=== PATIENT | female | born 1935 | race Two or more races ===

== ENCOUNTER 2018-08-26 12:23 | Day surgery (SDC) | payer OTHER ==
[2018-08-26] MEDS ORDERED: ATROPINE SULFATE 1 MG/10 ML SYR IVP ONE (12:31)
[2018-08-26] MEDS ORDERED: NS 500 ML IV ONE (12:31)
[2018-08-26] MEDS ORDERED: MIDAZOLAM 2 MG/2 ML VIAL IVP ONE (12:31)
[2018-08-26] MEDS ORDERED: fentaNYL 100 MCG/2 ML INJ IVP ONE (12:31)
--- NOTE | 2018-08-26 13:16 | PDHPUP ---
History & Physical Update H&P update statement: This history and physical update is based on an assessment of the patient which was completed after admission or registration (within 24 hours), but prior to the surgery/procedure. H&P update: H&P reviewed & patient examined, no change in patient's condition since H&P completed
[2018-08-26] MEDS ORDERED: ALBUTEROL 3 ML DEYVIAL IH PRN (13:22)
[2018-08-26] MEDS ORDERED: ONDANSETRON 4 MG/2 ML VIAL IVP PRN (13:22)
[2018-08-26] MEDS ORDERED: NALOXONE HCL 0.4 MG/ML INJ IVP PRN (13:22)
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
[2018-08-26] MEDS ORDERED: PROPOFOL 200 MG/20 ML VIAL ONE ×2 (13:25→13:27)
[2018-08-26] MEDS ORDERED: LIDOCAINE 2% 100 MG/5 ML SYR ONE (13:25)
[2018-08-26] MEDS ORDERED: ATROPINE SULFATE 1 MG/10 ML SYR ONE (13:28)
[2018-08-26 13:36] LABS: INR 4.68 (0.83-1.16); PROTIME(PATIENT) 43.5 SEC (12.0-15.0)
[2018-08-26] MEDS ORDERED: MAGNESIUM SULF 1 GM/DEXTROSE 100 ML IV ONE (14:00)
--- NOTE | 2018-08-26 14:19 | PDTEE1 ---
ERICH Cardioversion Procedure Procedure: electrical cardioversion Indications: atrial fibrillation Consent: signed and in chart Anticoagulation: warfarin Procedural Details: Pads were placed in anterior-posterior position. ERICH probe was advanced and standard images obtained. There is no evidence of left atrial or left atrial appendage thrombus. Synchronized cardioversion attempt #1: 200J Conclusions: successful ERICH cardioversion Patient Problems: Problems Problem Status Onset CAD (coronary artery disease) Acute Fusion of lumbar spine Acute
--- NOTE | 2018-08-26 14:29 | POSTANESTH ---
Post Anesthetic Evaluation Cardiovascular Status: Similar to Pre-Op Cond Respiratory Status: Similar to Pre-op Cond. Level of Consciousness/Mental Status: Mildly Sleepy, Arousable Pain Control: Adequate, Prn Tx Ordered Nausea/Vomiting Control: Adequate, Prn Tx Ordered Complications Possibly Related to Anesthesia: None Noted
--- NOTE | 2018-08-27 06:14 | CPEKG ---
Test Reason : OPEN Blood Pressure : / mmHG Vent. Rate : 075 BPM Atrial Rate : 194 BPM P-R Int : 053 ms QRS Dur : 131 ms QT Int : 448 ms P-R-T Axes : 000 -79 095 degrees QTc Int : 501 ms Afib/flut and V-paced complexes Confirmed by Ubaldo Wallace ([id number]) on 08/27/2018 6:14:03 AM Referred By: Confirmed By:Ubaldo Wallace
--- NOTE | 2018-08-28 13:06 | ECHO ---
[email or web address] [phone] Main: [phone] Fax: Transesophageal Echocardiography Name: JOANNA LORENZANA MR#: [id number] Study Date: 08/26/2018 Study Time: 02:04 PM Date of : 1935 Age: 82 year(s) Height: ( ) Weight: ( ) BSA: Gender: Female Examination: ERICH Indication: cardioversion Image Quality: Contrast: Requested by: Heart Rate: Rhythm: BP: / Procedure Staff Corporate Analyst: Melissa Seymour RDCS Reading Physician: Hilton Lanza MD Requesting Provider: ERICH Exam Details Conclusions: Normal size left ventricle. Normal global systolic LV function. The left atrial appendage is unilobular. Good color flow doppler in the left atrial appendage. No thrombus in left appendage. Cardioversion perfomred immediately following the procedure. Measurements: Chambers Valvular Assessment AV/MV Valvular Assessment TV/PV Normal Normal Normal Name Value Range Name Value Range Name Value Range Additional Measurements: Findings: Left Ventricle: Normal size left ventricle. Normal global systolic LV function. Right Ventricle: Normal size right ventricle. Normal RV function. Left Atrial Appendage: The left atrial appendage is unilobular. Good color flow doppler in the left atrial appendage. No thrombus in left appendage. Mitral Valve: Patient: JOANNA LORENZANA Study Date: 08/26/2018 Page 1 of 2 02:04 PM The mitral valve is normal in appearance and function. Mild mitral valve regurgitation is present. No mitral stenosis is present. l1n (No Signature Object) Patient: JOANNA LORENZANA Study Date: 08/26/2018 Page 2 of 2 02:04 PM [id number]
== END 2018-08-26 17:25 | disposition home or self-care (01) ==
LOC: FCATH 12:23
PROVIDERS: ATTEND Internal Medicine Cardiovascular Disease
DX: I48.91 Unspecified atrial fibrillation (principal); I25.10 Atherosclerotic heart disease of native coronary artery without angina pectoris; I49.5 Sick sinus syndrome; I10 Essential (primary) hypertension; E78.5 Hyperlipidemia, unspecified; E11.40 Type 2 diabetes mellitus with diabetic neuropathy, unspecified; F41.9 Anxiety disorder, unspecified; J44.9 Chronic obstructive pulmonary disease, unspecified; F32.9 Major depressive disorder, single episode, unspecified; C90.00 Multiple myeloma not having achieved remission; M79.7 Fibromyalgia; G47.33 Obstructive sleep apnea (adult) (pediatric); M48.061 Spinal stenosis, lumbar region without neurogenic claudication; E55.9 Vitamin D deficiency, unspecified; Z79.84 Long term (current) use of oral hypoglycemic drugs; Z79.01 Long term (current) use of anticoagulants; Z87.891 Personal history of nicotine dependence; Z86.010 Personal history of colon polyps; Z86.73 Personal history of transient ischemic attack (TIA), and cerebral infarction without residual deficits; Z95.1 Presence of aortocoronary bypass graft; Z95.0 Presence of cardiac pacemaker; Z88.0 Allergy status to penicillin; Z98.1 Arthrodesis status
CPT/HCPCS: J0461; J2001; J2704; J3475